=== PATIENT | male | born 1975 | race Caucasian/White ===

== ENCOUNTER 2019-09-21 17:41 | Emergency (ER) | payer MEDICAID, OTHER ==
[~2019-09-21] VITALS: Ht 177.8 cm; Wt 99.0 kg
[2019-09-21 18:40] LABS: BASOPHILS % (AUTO) 0.4 % (0-1); EOSINOPHILS # (AUTO) 0.4 X10'3 (0-0.9); EOSINOPHILS % (AUTO) 5.2 % (0-6); HEMOGLOBIN 15.6 g/dl (14.0-17.9); LYMPHOCYTES # (AUTO) 2.9 X10'3 (1.1-4.8); LYMPHOCYTES % (AUTO) 34.3 % (21-51); MEAN CORPUSCULAR HEMOGLOBIN 30.8 PG (27.0-31.0); MEAN CORPUSCULAR HGB CONC 33.8 g/dL (33.0-36.5); MEAN CORPUSCULAR VOLUME 90.9 FL (78-98); MEAN PLATELET VOLUME 8.5 FL (7.4-10.4); MONOCYTES # (AUTO) 0.7 X10'3 (0-0.9); MONOCYTES % (AUTO) 8.6 % (2-12); NEUTROPHILS # (AUTO) 4.4 X10'3 (1.8-7.7); NEUTROPHILS % (AUTO) 51.5 % (42-75); PLATELET COUNT 263 X10'3 (140-440); RED BLOOD COUNT 5.05 X10'6 (4.70-6.10); WHITE BLOOD COUNT 8.5 X10'3 (4.5-11.0)
[2019-09-21 18:51] LABS: ALANINE AMINOTRANSFERASE 43 U/L (12-78); ALBUMIN 3.8 G/DL (3.4-5.0); ALKALINE PHOSPHATASE 91 IU/L (46-116); ANION GAP 8 (8-16); ASPARTATE AMINO TRANSFERASE 23 U/L (10-37); BILIRUBIN,TOTAL 0.2 MG/DL (0.1-1.0); BLOOD UREA NITROGEN 20 MG/DL (7-18); BUN/CREATININE RATIO 18.5 (5.4-32.0); CALCIUM 8.7 MG/DL (8.5-10.1); CHLORIDE 105 MMOL/L (99-107); CREATININE 1.08 MG/DL (0.60-1.10); GLUCOSE 86 MG/DL (70-104); POTASSIUM 4.1 MMOL/L (3.5-5.1); SODIUM 141 MMOL/L (135-145); TOTAL CARBON DIOXIDE 28.1 MMOL/L (24-32); TOTAL PROTEIN 7.5 G/DL (6.4-8.2); eGFR 75 ML/MIN
--- NOTE | 2019-09-21 19:28 | NUR ---
dr. horn at bedside assessing patient
[2019-09-21] MEDS ORDERED: metoclopramide 5 mg/ml inj IV ONE (19:40)
[2019-09-21] MEDS ORDERED: ketorolac trometh. 30mg/ml inj. IV ONE (19:40)
[2019-09-21 20:16] LABS: CREATINE KINASE 161 U/L (39-308)
[2019-09-21] MEDS ORDERED: METO10TA3 PO (21:31)
[2019-09-21 21:54] VITALS: BP 136/88
== END 2019-09-21 21:56 | disposition home or self-care (01) ==
LOC: ER 17:41
DX: R07.89 Other chest pain (principal); R06.02 Shortness of breath; R10.32 Left lower quadrant pain; R42 Dizziness and giddiness; Z79.899 Other long term (current) drug therapy; V80.010A Animal-rider injured by fall from or being thrown from horse in noncollision accident, initial encounter; Y92.89 Other specified places as the place of occurrence of the external cause; Y99.8 Other external cause status; Y93.I9 Activity, other involving external motion
CPT/HCPCS: 36415; 70450; 71045; 80053; 82550; 83880; 84484; 85025; 93005; 96374; 96375; 99284; J1885; J2765